=== PATIENT | female | born 1955 | race American Indian/Alaskan Native ===

== ENCOUNTER 2021-02-25 13:05 | Outpatient (CLI) | payer MEDICARE ==
--- NOTE | 2021-02-25 15:16 | Ultrasound Report ---
ULTRASOUND GUIDED LEFT BREAST BIOPSY, 02/25/2021 CLINICAL INFORMATION / INDICATION: UNSPECIFIED LUMP IN THE LEFT BREAST, LOWER OUTER QUAD. COMPARISON: Prior left breast ultrasound 02/13/2021 PROCEDURE: Risks, benefits, and indications to the procedure were discussed with the patient in detail, includin g bleeding, infection, hematoma formation, and inadequate tissue sampling. The patient agreed to proc eed with both verbal and written consent. A timeout procedure was performed with two patient identifi ers. The breast was prepped and draped in the usual sterile fashion. Lidocaine 1% with and without epineph rine were used for local anesthesia. Under direct ultrasound guidance, multiple core samples were obt ained of the large irregular solid mass in the subareolar region. There is approximately 3 cm area of skin ulceration in the region of the nipple.. A biopsy marker was then placed. Biopsy device was re moved and hemostasis achieved with manual pressure. A sterile dressing was applied to the skin. The patient tolerated the procedure without difficulty. No complications were encountered. Postbiopsy instructions were discussed with the patient and given in writing. Specimens were sent to pathology. IMPRESSION: 1. Technically successful ultrasound guided left breast biopsy. Biopsy results are pending and will be reported in an addendum. Signer Name: Pamela Garcia MD Signed: 02/25/2021 3:11 PM Workstation Name: [id number]
--- NOTE | 2021-02-25 15:18 | Mammography Report ---
DIGITAL DIAGNOSTIC MAMMOGRAM WITH CAD , 02/25/2021 CLINICAL INFORMATION / INDICATION: Ulcerated left breast mass. POST US BX AND DIAGNOSTIC TECHNIQUE: Digital left mammographic imaging was performed. This examination was interpreted with the benefit of Computer-aided Detection analysis. COMPARISON: None FINDINGS: Breast Density: There are scattered areas of fibroglandular density. There is a solid irregular mass in the subareolar region of the left breast with an involvement of th e nipple, and nipple retraction. The mass measures approximately 6 x 5 cm. There are a few pleomorphi c calcifications noted within the solid mass. A biopsy clip is present within the mass related to ult rasound-guided biopsy performed immediately prior to the mammogram. No additional findings are seen i n the breast. IMPRESSION: Large irregular left subareolar breast mass measuring 6 x 5 cm. This was biopsied earlier today with results pending. Follow up recommendation: Surgical consultation BI-RADS Category 5: Highly Suggestive of Malignancy. A "normal" or negative report should not discourage follow up or biopsy of a clinically significant f inding. A written summary of these findings will be mailed to the patient. The patient will be entered into a mammography reporting system which will generate a reminder letter for the patient's next appointmen t at the appropriate interval. According to the [employer], yearly mammograms are recommended starting at age 40 and continuing as long as a woman is in good health. Breast MRI is recommended for women with an erna roximately 20-25% or greater lifetime risk of breast cancer, including women with a strong family his tory of breast or ovarian cancer and women who have been treated for Hodgkin's disease. Signer Name: Pamela Garcia MD Signed: 02/25/2021 3:14 PM Workstation Name: [id number]
--- NOTE | 2021-02-27 16:13 | Ultrasound Report ---
Ultrasound of left axillary lymph node, 02/25/2021 INDICATION: Patient has a large left subareolar breast mass suspicious for malignancy with abnormally enlarged left axillary lymph nodes. We have been requested to biopsy the left breast mass and left a xillary lymph node. COMPARISON: Prior breast ultrasound performed 02/13/2021 FINDINGS: A successful timeout procedure was performed. Verbal and written consent was obtained from the patient. Using sterile technique and lidocaine for local infiltrative anesthesia, a 12-gauge vacuum assisted b iopsy was used to obtained 3 core samples through an abnormally enlarged left axillary lymph node. Ul trasound guidance was used for this procedure. A biopsy clip was placed in the lymph node that was bi opsied. The patient tolerated the procedure well. No complications were encountered. The samples were sent to pathology for further evaluation. IMPRESSION: Successful percutaneous biopsy of abnormal left axillary lymph node. Patient is being fol lowed by Dr. Ac. Awaiting pathology results. An addendum will be performed once pathology results are available. Signer Name: Pamela Garcia MD Signed: 02/25/2021 3:09 PM Workstation Name: [id number]
== END 2021-02-25 13:06 | disposition home or self-care (01) ==
LOC: SPVWC 13:05
PROVIDERS: ATTEND Surgery
DX: N63.23 Unspecified lump in the left breast, lower outer quadrant (principal); Z79.899 Other long term (current) drug therapy
CPT/HCPCS: 38505; 88305; 88341; 88342

== ENCOUNTER 2021-03-06 10:01 | Outpatient (CLI) | payer MEDICARE ==
--- NOTE | 2021-03-06 10:54 | Mammography Report ---
DIGITAL DIAGNOSTIC MAMMOGRAM WITH CAD CONVENTIONAL, 03/06/2021 CLINICAL INFORMATION / INDICATION: Recent diagnosis left breast cancer TECHNIQUE: Digital right mammographic imaging was performed. This examination was interpreted with the benefit of Computer-aided Detection analysis. COMPARISON: None available FINDINGS: Breast Density: The breasts are heterogeneously dense, which may obscure small masses. No significant abnormalities are seen. Benign-appearing calcification is noted. IMPRESSION: No mammographic evidence of malignancy. Follow up recommendation: Based on the left known carcinoma BI-RADS Category 2: Benign. A "normal" or negative report should not discourage follow up or biopsy of a clinically significant f inding. A written summary of these findings will be mailed to the patient. The patient will be entered into a mammography reporting system which will generate a reminder letter for the patient's next appointmen t at the appropriate interval. According to the [employer], yearly mammograms are recommended starting at age 40 and continuing as long as a woman is in good health. Breast MRI is recommended for women with an erna roximately 20-25% or greater lifetime risk of breast cancer, including women with a strong family his tory of breast or ovarian cancer and women who have been treated for Hodgkin's disease. Signer Name: Chris Hare MD Signed: 03/06/2021 10:49 AM Workstation Name: [id number]
== END 2021-03-06 10:02 | disposition home or self-care (01) ==
LOC: SPVWC 10:01
PROVIDERS: ATTEND Surgery
DX: N63.0 Unspecified lump in unspecified breast (principal); N63.13 Unspecified lump in the right breast, lower outer quadrant